=== PATIENT | male | born 1980 | race African-American/Black ===

== ENCOUNTER 2017-11-23 06:31 | Emergency (ER) | payer BC, OTHER ==
[2017-11-23] MEDS ORDERED: Ketorolac Tromethamine 60 MG/2 ML VIAL ONE (06:50)
--- NOTE | 2017-11-23 08:43 | RAD ---
LEFT KNEE 4 VIEWS: Date: 11/23/17 HISTORY: Pain. Symptoms x2 days. FINDINGS: There is a suprapatellar effusion. Joint spaces are preserved. There is no acute fracture, cortical i rregularity, or periosteal reaction. There is a lucency involving the anterior tibial tuberosity with overlying soft tissue prominence. Th e lucency has some well corticated margins suggesting a chronic process. If there is concern for liga mentous injury, given the presence of joint effusion, MRI is recommended. IMPRESSION: Findings as above. Consider MRI. MRI should be performed nonemergently. POS: [facility]
== END 2017-11-23 07:30 | disposition home or self-care (01) ==
LOC: ERS 06:31
DX: M25.561 Pain in right knee (principal); F17.210 Nicotine dependence, cigarettes, uncomplicated
CPT/HCPCS: 96372; J1885

== ENCOUNTER 2020-06-08 09:38 | Emergency (ER) | payer BC | END 2020-06-08 11:18 | disposition home or self-care (01) | LOC: ERS 09:38 | DX: M54.6 Pain in thoracic spine (principal); F17.210 Nicotine dependence, cigarettes, uncomplicated | CPT/HCPCS: 71046 ==